=== PATIENT | male | born 1965 | race Two or more races ===

== ENCOUNTER → 2017-06-15 | Outpatient (CLI) | payer BC ==
--- NOTE | 2017-06-15 11:05 | EST ---
EXERCISE STRESS AGE: 52 SEX: Male HT: 5'10" WT: 275 pounds PROTOCOL: Cardiolite Emre STAGE: III DURATION OF EXERCISE: 7 minutes HEART RATE REST: 69 BLOOD PRESSURE REST: 162/85 MAXIMUM HEART RATE ACHIEVED: 156 MAXIMUM BLOOD PRESSURE: 219/65 85% MPHR: 143 100% MPHR: 168 METS: 8 INDICATIONS: Chest pain. Baseline EKG shows sinus rhythm, normal axis, normal intervals. The patient exercised on Emre protocol for a total of 7 minutes achieving 8 METs, 92% of predicted maximal heart rate without chest pain or diagnostic ST-segment depression. CONCLUSIONS: 1. Average exercise tolerance. 2. Negative stress test by EKG criteria. 3. Cardiolite portion of this stress test will be reported separately. MMODL / IJN: [id number] /
--- NOTE | 2017-06-15 11:34 | NM ---
EXAMINATION TYPE: NM stress cardiolite complete DATE OF EXAM: 06/15/2017 COMPARISON: NONE HISTORY: Chest pain TECHNIQUE: After the intravenous administration of 9.61 mCi Tc 99m Sestamibi - Rest images obtained 45 minutes post injection. The patient exercised using a ANDRZEJ protocol and 1 minute prior to peak exercise was injected with 29 mCi Tc 99m Sestamibi - Stress images obtained 10 minutes post injection . FINDINGS: Targeted heart rate was achieved during performance of the study. Review of stress and rest SPECT cynthia ges demonstrates no distinct perfusion abnormality. Gated analysis shows normal wall motion with an estimated left ventricular ejection fraction of 61 %. IMPRESSION: No scintigraphic evidence for reversible ischemia
== END ==
LOC: RADNMMAIN 08:30
PROVIDERS: ATTEND Family Medicine
DX: R07.9 Chest pain, unspecified (principal)
CPT/HCPCS: 93017; 78452; A9500

== ENCOUNTER 2019-10-16 21:45 | Emergency (ER) | payer BC ==
--- NOTE | 2019-10-16 22:55 | ED ---
Recheck HPI - General Chief Complaint: Recheck/Abnormal Lab/Rx Stated Complaint: Abn Labs Time Seen by Provider: 10/16/19 22:02 Source: patient Mode of arrival: ambulatory Limitations: no limitations - History of Present Illness Initial Comments: Frandy a 54-year-old [place] with a history of bariatric surgery in the past 2 presents the ER today on the advice of his primary care physician after outpatient labs revealed profound anemia. Patient reports he's been feeling fatigued for a while he had outpatient labs completed which revealed a hemoglobin of only 7.4, low iron, normal liver function normal thyroid. Patient is scheduled to see gastroenterology next week for upper and lower endoscopy, given that he says was bariatric surgery he is high risk for occult GI bleeding. Patient reports she's been feeling fatigued and short of breath with exertion which is what prompted his primary care to perform outpatient labs. Patient denies any chest pain or palpitations. He does report orthostatic lightheadedness. - Related Data Allergies Allergy/AdvReac Type Severity Reaction Status Date / Time No Known Allergies Allergy Verified 10/16/19 21:56 Review of Systems ROS Statement: Those systems with pertinent positive or pertinent negative responses have been documented in the HPI. ROS Other: All systems not noted in ROS Statement are negative. Past Medical History Additional Past Medical History / Comment(s): anemia History of Any Multi-Drug Resistant Organisms: None Reported Past Surgical History: Appendectomy, Bariatric Surgery, Orthopedic Surgery Additional Past Surgical History / Comment(s): left knee, tummy tuc, eye surgery Past Psychological History: No Psychological Hx Reported Smoking Status: Never smoker Past Alcohol Use History: Daily Past Drug Use History: None Reported General Exam - General Exam Comments Initial Comments: Physical Exam GENERAL: Patient is well-developed and well-nourished. Patient is nontoxic and well-hydrated and is in no distress. HENT: Normocephalic, Atraumatic. EYES: PERRL, EOMI Conjunctival pallor PULMONARY: Unlabored respirations. No audible rales rhonchi or wheezing was noted. CARDIOVASCULAR: There is a regular rate and rhythm without any murmurs gallops or rubs. ABDOMEN: Soft and nontender with normal bowel sounds. SKIN: Skin is clear with no lesions or rashes and otherwise unremarkable. : Deferred NEUROLOGIC: Patient is alert and oriented x3. Moving all extremities spontaneously MUSCULOSKELETAL: Normal extremities with adequate strength and full range of motion. No lower extremity swelling or edema. No calf tenderness. PSYCHIATRIC: Normal psychiatric evaluation. Limitations: no limitations Course Vital Signs 10/16/19 10/16/19 10/17/19 21:53 23:00 00:46 Temperature 98.8 F 98.6 F Pulse Rate 88 72 86 Respiratory 16 20 18 Rate Blood Pressure 145/75 152/85 152/85 O2 Sat by Pulse 98 97 95 Oximetry 10/17/19 10/17/19 10/17/19 01:31 01:41 01:54 Temperature 98.8 F 98.3 F 98.3 F Pulse Rate 84 72 62 Respiratory 16 15 18 Rate Blood Pressure 129/64 123/66 130/61 O2 Sat by Pulse 94 L 98 96 Oximetry 10/17/19 10/17/19 02:10 04:07 Temperature 98.3 F 98.4 F Pulse Rate 86 85 Respiratory 18 18 Rate Blood Pressure 122/61 129/63 O2 Sat by Pulse 96 98 Oximetry Medical Decision Making - Medical Decision Making She was seen and evaluated history is obtained from patient as an outpatient labs are reviewed patient with anemia that is microcytic likely multifactorial related to chronic GI blood loss secondary to his previous surgeries also likely related to malabsorption and chronic disease. Patient has been feeling fatigued short of breath but no chest pain palpitations lightheadedness or syncope. Labs were repeated hemoglobin remained 7.4, 1 unit of blood was transfused. Patient tolerated transfusion well with no complications. At this time patient is hemodynamically stable be discharged home as scheduled have an echocardiogram with cardiology tomorrow and endoscopy on Thursday of this week. and hemodynamically stable questions pertaining care were answered return parameters discussed patient discharged home in stable condition. - Lab Data Result diagrams: 10/16/19 23:31 10/16/19 23:20 Lab Results 10/16/19 10/16/19 10/16/19 Range/Units 23:12 23:20 23:20 WBC (3.8-10.6) k/uL RBC (4.30-5.90) m/uL Hgb (13.0-17.5) gm/dL Hct (39.0-53.0) % MCV (80.0-100.0) fL MCH (25.0-35.0) pg MCHC (31.0-37.0) g/dL RDW (11.5-15.5) % Plt Count (150-450) k/uL Neutrophils % % Lymphocytes % % Monocytes % % Eosinophils % % Basophils % % Neutrophils # (1.3-7.7) k/uL Lymphocytes # (1.0-4.8) k/uL Monocytes # (0-1.0) k/uL Eosinophils # (0-0.7) k/uL Basophils # (0-0.2) k/uL Hypochromasia Anisocytosis PT 16.6 H (9.0-12.0) sec INR 1.7 H (<1.2) APTT 26.4 (22.0-30.0) sec Sodium 137 (137-145) mmol/L Potassium 4.0 (3.5-5.1) mmol/L Chloride 104 (98-107) mmol/L Carbon Dioxide 24 (22-30) mmol/L Anion Gap 9 mmol/L BUN 8 L (9-20) mg/dL Creatinine 0.57 L (0.66-1.25) mg/dL Est GFR (CKD-EPI)AfAm >90 (>60 ml/min/1.73 sqM) Est GFR (CKD-EPI)NonAf >90 (>60 ml/min/1.73 sqM) Glucose 81 (74-99) mg/dL Calcium 8.3 L (8.4-10.2) mg/dL Total Bilirubin 1.6 H (0.2-1.3) mg/dL AST 125 H (17-59) U/L ALT 36 (4-49) U/L Alkaline Phosphatase 130 H (38-126) U/L Total Protein 7.6 (6.3-8.2) g/dL Albumin 3.2 L (3.5-5.0) g/dL Blood Type O Negative Blood Type Confirm Blood Type Recheck No Previous Record Bld Type Recheck Status CABO Indicated Antibody Screen NEGATIVE Crossmatch See Detail Spec Expiration Date 10/19/2019 - 231910/16/19 10/16/19 Range/Units 23:20 23:31 WBC 4.7 (3.8-10.6) k/uL RBC 2.87 L (4.30-5.90) m/uL Hgb 7.4 L (13.0-17.5) gm/dL Hct 24.8 L (39.0-53.0) % MCV 86.3 (80.0-100.0) fL MCH 25.8 (25.0-35.0) pg MCHC 29.8 L (31.0-37.0) g/dL RDW 20.6 H (11.5-15.5) % Plt Count 132 L (150-450) k/uL Neutrophils % 65 % Lymphocytes % 20 % Monocytes % 8 % Eosinophils % 2 % Basophils % 1 % Neutrophils # 3.0 (1.3-7.7) k/uL Lymphocytes # 1.0 (1.0-4.8) k/uL Monocytes # 0.4 (0-1.0) k/uL Eosinophils # 0.1 (0-0.7) k/uL Basophils # 0.1 (0-0.2) k/uL Hypochromasia Marked Anisocytosis Moderate PT (9.0-12.0) sec INR (<1.2) APTT (22.0-30.0) sec Sodium (137-145) mmol/L Potassium (3.5-5.1) mmol/L Chloride (98-107) mmol/L Carbon Dioxide (22-30) mmol/L Anion Gap mmol/L BUN (9-20) mg/dL Creatinine (0.66-1.25) mg/dL Est GFR (CKD-EPI)AfAm (>60 ml/min/1.73 sqM) Est GFR (CKD-EPI)NonAf (>60 ml/min/1.73 sqM) Glucose (74-99) mg/dL Calcium (8.4-10.2) mg/dL Total Bilirubin (0.2-1.3) mg/dL AST (17-59) U/L ALT (4-49) U/L Alkaline Phosphatase (38-126) U/L Total Protein (6.3-8.2) g/dL Albumin (3.5-5.0) g/dL Blood Type Blood Type Confirm O Negative Blood Type Recheck Bld Type Recheck Status Antibody Screen Crossmatch Spec Expiration Date Disposition Clinical Impression: Anemia Disposition: HOME SELF-CARE Condition: Stable Instructions (If sedation given, give patient instructions): Anemia (ED) Additional Instructions: Follow-up with your editor in chief as scheduled tomorrow for endoscopy and colonoscopy. Follow-up with her primary care physician for further management of chronic anemia. Turn to the ER for any lightheadedness chest pain palpitation shortness breath feeling like passing out or any new or concerning symptoms Is patient prescribed a controlled substance at d/c from ED?: No Referrals: Liu Wray MD [Primary Care Provider] - 1-2 days
[2019-10-16 23:40] LABS: ALT 36 U/L (4-49); AST 125 U/L (17-59); African American GFR (CKD) >90 (>60 ml/min/1.73 sqM); Albumin 3.2 g/dL (3.5-5.0); Alkaline Phosphatase 130 U/L (38-126); Anion Gap 9 mmol/L; Blood Urea Nitrogen 8 mg/dL (9-20); Calcium 8.3 mg/dL (8.4-10.2); Carbon Dioxide 24 mmol/L (22-30); Chloride 104 mmol/L (98-107); Glucose 81 mg/dL (74-99); Non-African American GFR(CKD) >90 (>60 ml/min/1.73 sqM); Sodium 137 mmol/L (137-145); Total Bilirubin 1.6 mg/dL (0.2-1.3); Total Protein 7.6 g/dL (6.3-8.2)
[2019-10-16 23:41] LABS: Anisocytosis Moderate; Basophils # (A) 0.1 k/uL (0-0.2); Basophils % (A) 1 %; Eosinophils # (A) 0.1 k/uL (0-0.7); Eosinophils % (A) 2 %; HCT 24.8 % (39.0-53.0); HGB 7.4 gm/dL (13.0-17.5); Hypochromasia Marked; Lymphocytes % (A) 20 %; MCH 25.8 pg (25.0-35.0); MCHC 29.8 g/dL (31.0-37.0); MCV 86.3 fL (80.0-100.0); Mean Platelet Volume 9.2; Monocytes # (A) 0.4 k/uL (0-1.0); Monocytes % (A) 8 %; Neutrophils % (A) 65 %; Platelet Count 132 k/uL (150-450); RBC 2.87 m/uL (4.30-5.90); RDW 20.6 % (11.5-15.5); WBC 4.7 k/uL (3.8-10.6)
[2019-10-16 23:44] LABS: INR 1.7 (<1.2); Partial Thromboplastin Time 26.4 sec (22.0-30.0); Prothrombin Time 16.6 sec (9.0-12.0)
[2019-10-17 01:55] VITALS: RESP 18
[2019-10-17 04:13] VITALS: BP 129/63; PULSE 85; TEMP 98.4
== END 2019-10-17 04:29 | disposition home or self-care (01) ==
LOC: EC 21:45
DX: D64.9 Anemia, unspecified (principal); Z98.84 Bariatric surgery status
CPT/HCPCS: 99283; 36415; 86900; 86901; 80053; 85025; 85610; 85730; 86850; 86920; P9016; 36430

== ENCOUNTER 2019-11-20 20:26 | Emergency (ER) | payer BC ==
--- NOTE | 2019-11-20 21:49 | ED ---
Abdominal Pain HPI - General Chief Complaint: Abdominal Pain Stated Complaint: Abd pain Time Seen by Provider: 11/20/19 21:04 Source: patient Mode of arrival: ambulatory Limitations: no limitations - History of Present Illness Initial Comments: This patient is a 54-year-old man who presents to be evaluated for left lower quadrant abdominal pains. The patient states he has had pain in this location intermittently for number of years but was not concerned about it until he had an episode of pain on 's [place] that was moderate to severe in intensity and lasted number of hours. He states that the pain has been recurring more frequently since this time and he did see his physician Dr. Flannery, who is attempting to set him up for a colonoscopy to further investigate the pains. Tonight he had a severe episode and decided to be evaluated here. He states that the pain has subsided a bit and is currently 4 out of 10 and he declines analgesia currently. It is an aching, he has not noted worsening factors. In the past loose in his belt would relieve the pain but that has not been the case for the past months. No change in bladder or bowel function noted. He has not had bloody or tarry stools noted though he was recently anemic requiring transfusion and they suspect he is having some very low level GI bleeding. The patient does have history of Supa en Y bariatric surgery and was told previously he had diverticulosis. MD Complaint: abdominal pain -: month(s) Location: LLQ Radiation: none Migration to: no migration Severity: severe Quality: aching Consistency: intermittent Improves With: nothing Worsens With: nothing Associated Symptoms: denies other symptoms - Related Data Previous Rx's Medication Instructions Recorded Ciprofloxacin HCl [Cipro] 500 mg PO Q12HR #14 tablet 11/21/19 metroNIDAZOLE [Flagyl] 500 mg PO TID #21 tab 11/21/19 Allergies Allergy/AdvReac Type Severity Reaction Status Date / Time No Known Allergies Allergy Verified 11/20/19 20:48 Review of Systems ROS Statement: Those systems with pertinent positive or pertinent negative responses have been documented in the HPI. ROS Other: All systems not noted in ROS Statement are negative. Constitutional: Denies: fever, chills Respiratory: Denies: cough, dyspnea Cardiovascular: Denies: chest pain, palpitations Gastrointestinal: Reports: as per HPI, abdominal pain. Denies: nausea, vomiting, diarrhea, constipation, melena, hematochezia Genitourinary: Denies: dysuria, frequency, hematuria, testicular pain, testicular mass Musculoskeletal: Denies: back pain Skin: Denies: rash Neurological: Denies: headache, weakness, numbness Past Medical History Additional Past Medical History / Comment(s): anemia History of Any Multi-Drug Resistant Organisms: None Reported Past Surgical History: Appendectomy, Bariatric Surgery, Orthopedic Surgery Additional Past Surgical History / Comment(s): left knee, tummy tuc, eye surgery Past Psychological History: No Psychological Hx Reported Smoking Status: Never smoker Past Alcohol Use History: Daily Past Drug Use History: None Reported General Exam Limitations: no limitations General appearance: alert, in no apparent distress Head exam: Present: atraumatic, normocephalic Eye exam: Present: normal appearance. Absent: scleral icterus, conjunctival injection ENT exam: Present: normal oropharynx Neck exam: Present: normal inspection Respiratory exam: Present: normal lung sounds bilaterally. Absent: respiratory distress, wheezes, rales, rhonchi, stridor Cardiovascular Exam: Present: regular rate, normal rhythm, normal heart sounds. Absent: systolic murmur, diastolic murmur, rubs, gallop GI/Abdominal exam: Present: soft, tenderness (Mild left lower quadrant tenderness without rebound or guarding), normal bowel sounds. Absent: distended, guarding, rebound, rigid, mass, pulsatile mass, hernia Extremities exam: Present: normal inspection, normal capillary refill. Absent: pedal edema, calf tenderness Back exam: Present: normal inspection. Absent: CVA tenderness (R), CVA tenderness (L) Neurological exam: Present: alert Skin exam: Present: warm, dry, intact, normal color. Absent: rash Course Vital Signs 11/20/19 11/20/19 20:43 22:55 Temperature 98.1 F 97.9 F Pulse Rate 98 89 Respiratory 20 18 Rate Blood Pressure 148/71 124/66 O2 Sat by Pulse 95 100 Oximetry Medical Decision Making - Lab Data Result diagrams: 11/20/19 21:10 11/20/19 21:10 Lab Results 11/20/19 11/20/19 11/20/19 Range/Units 21:10 21:10 22:20 WBC 5.9 (3.8-10.6) k/uL RBC 3.16 L (4.30-5.90) m/uL Hgb 9.0 L D (13.0-17.5) gm/dL Hct 28.2 L (39.0-53.0) % MCV 89.3 (80.0-100.0) fL MCH 28.6 (25.0-35.0) pg MCHC 32.0 (31.0-37.0) g/dL RDW 24.1 H (11.5-15.5) % Plt Count 127 L (150-450) k/uL Neutrophils % 69 % Lymphocytes % 17 % Monocytes % 8 % Eosinophils % 2 % Basophils % 0 % Neutrophils # 4.1 (1.3-7.7) k/uL Lymphocytes # 1.0 (1.0-4.8) k/uL Monocytes # 0.5 (0-1.0) k/uL Eosinophils # 0.1 (0-0.7) k/uL Basophils # 0.0 (0-0.2) k/uL Anisocytosis Marked Microcytosis Slight Macrocytosis Slight Sodium 138 (137-145) mmol/L Potassium 3.9 (3.5-5.1) mmol/L Chloride 104 (98-107) mmol/L Carbon Dioxide 27 (22-30) mmol/L Anion Gap 7 mmol/L BUN 7 L (9-20) mg/dL Creatinine 0.55 L (0.66-1.25) mg/dL Est GFR (CKD-EPI)AfAm >90 (>60 ml/min/1.73 sqM) Est GFR (CKD-EPI)NonAf >90 (>60 ml/min/1.73 sqM) Glucose 88 (74-99) mg/dL Calcium 8.2 L (8.4-10.2) mg/dL Total Bilirubin 1.4 H (0.2-1.3) mg/dL AST 120 H (17-59) U/L ALT 37 (4-49) U/L Alkaline Phosphatase 216 H (38-126) U/L Total Protein 8.0 (6.3-8.2) g/dL Albumin 3.5 (3.5-5.0) g/dL Amylase 51 (30-110) U/L Lipase 263 (23-300) U/L Urine Color Yellow Urine Appearance Clear (Clear) Urine pH 5.5 (5.0-8.0) Ur Specific [place] 1.012 (1.001-1.035) Urine Protein Negative (Negative) Urine Glucose (UA) Negative (Negative) Urine Ketones Negative (Negative) Urine Blood Negative (Negative) Urine Nitrite Negative (Negative) Urine Bilirubin Negative (Negative) Urine Urobilinogen 3.0 (<2.0) mg/dL Ur Leukocyte Esterase Negative (Negative) Disposition Clinical Impression: Diverticulitis Disposition: HOME SELF-CARE Condition: Good Instructions (If sedation given, give patient instructions): Diverticulitis (ED) Prescriptions: Ciprofloxacin HCl [Cipro] 500 mg PO Q12HR #14 tablet metroNIDAZOLE [Flagyl] 500 mg PO TID #21 tab Is patient prescribed a controlled substance at d/c from ED?: No Referrals: Liu Wray MD [Primary Care Provider] - 1-2 days
[2019-11-20 21:54] LABS: Anisocytosis Marked; Basophils % (A) 0 %; Eosinophils # (A) 0.1 k/uL (0-0.7); Eosinophils % (A) 2 %; HCT 28.2 % (39.0-53.0); Lymphocytes % (A) 17 %; MCH 28.6 pg (25.0-35.0); MCV 89.3 fL (80.0-100.0); Macrocytosis Slight; Mean Platelet Volume 8.3; Microcytosis Slight; Monocytes # (A) 0.5 k/uL (0-1.0); Monocytes % (A) 8 %; Neutrophils # (A) 4.1 k/uL (1.3-7.7); Neutrophils % (A) 69 %; Platelet Count 127 k/uL (150-450); RBC 3.16 m/uL (4.30-5.90); RDW 24.1 % (11.5-15.5); WBC 5.9 k/uL (3.8-10.6)
[2019-11-20 22:09] LABS: ALT 37 U/L (4-49); AST 120 U/L (17-59); African American GFR (CKD) >90 (>60 ml/min/1.73 sqM); Albumin 3.5 g/dL (3.5-5.0); Alkaline Phosphatase 216 U/L (38-126); Amylase 51 U/L (30-110); Anion Gap 7 mmol/L; Blood Urea Nitrogen 7 mg/dL (9-20); Calcium 8.2 mg/dL (8.4-10.2); Carbon Dioxide 27 mmol/L (22-30); Chloride 104 mmol/L (98-107); Glucose 88 mg/dL (74-99); Non-African American GFR(CKD) >90 (>60 ml/min/1.73 sqM); Potassium 3.9 mmol/L (3.5-5.1); Sodium 138 mmol/L (137-145); Total Bilirubin 1.4 mg/dL (0.2-1.3)
[2019-11-20 22:27] LABS: Appearance,Urine Clear (Clear); Bilirubin,Urine Negative (Negative); Blood,Urine Negative (Negative); Color,Urine Yellow; Glucose,Urine (UA) Negative (Negative); Ketones,Urine Negative (Negative); Leukocyte Esterase,Urine Negative (Negative); Nitrite,Urine Negative (Negative); PH, Urine 5.5 (5.0-8.0); Protein,Urine Negative (Negative); Specific Gravity,Urine 1.012 (1.001-1.035)
[2019-11-20 22:56] VITALS: RESP 18
--- NOTE | 2019-11-20 23:39 | CT ---
EXAMINATION TYPE: CT abdomen pelvis w con DATE OF EXAM: 11/20/2019 COMPARISON: None HISTORY: LLQ pain CT DLP: 2994.4 mGycm Automated exposure control for dose reduction was used. CONTRAST: Performed with IV Contrast, patient injected with 100 mL of Isovue 300. Multiple axial sections were obtained from the diaphragm to the floor the pelvis with intravenous con trast Isovue 100 mL. FINDINGS: Lung bases are clear. There is no pleural effusion. Heart size is normal. There is no pericardial eff usion. Liver spleen pancreas appear normal. Stomach is intact. There are clips at the gastric fundus. Gallbladder is enlarged and measures 5 cm in diameter. There is no adrenal mass. Kidneys show satisfactory contrast opacification. There is no hydronephrosi s. Ureters are not dilated. Bladder distends smoothly. There is no inguinal hernia. There is some mil d free fluid in the left paracolic gutter extending into the pelvis. There is extensive proximal sigm oid diverticulosis. There is no evidence of free air. There is surgical clips anteriorly apparently f rom hernia surgery. There is no evidence of a bowel obstruction. Lumbar vertebra have normal alignment. Disc spaces are fairly normal. Bony pelvis is intact. There is small amount of fluid also in the right paracolic gutter. IMPRESSION: Free fluid in the abdomen more on the left side. Cause for the fluid is not clear. There are numerous sigmoid diverticula but no definite wall thickening or fat stranding adjacent to the colon to sugges t diverticulitis. I suspect diverticulitis in view of this patient history of left lower quadrant ellis n and the presence of the fluid. Dilated gallbladder suggestive of cholecystitis or significant gallbladder dysfunction..
[2019-11-20] MEDS ORDERED: metroNIDAZOLE 500 MG TAB PO STA (23:45)
[2019-11-20] MEDS ORDERED: LEVOFLOXACIN 750 MG TAB PO STA (23:45)
[2019-11-21 00:30] VITALS: BP 126/71; PULSE 70; TEMP 98
== END 2019-11-21 00:15 | disposition home or self-care (01) ==
LOC: EC 20:26
DX: K57.92 Diverticulitis of intestine, part unspecified, without perforation or abscess without bleeding (principal); Z86.2 Personal history of diseases of the blood and blood-forming organs and certain disorders involving the immune mechanism; Z90.49 Acquired absence of other specified parts of digestive tract; Z98.84 Bariatric surgery status
CPT/HCPCS: 36415; 80053; 82150; 83690; 85025; 81003; 74177; 99284; Q9967

== ENCOUNTER 2019-11-29 09:43 | Day surgery (SDC) | payer BC ==
[2019-11-25 10:15] VITALS: BMI 38.7
[~2019-11-29 09:43] MED LIST: LACTATED RINGERS 1,000 ML IV SCH
[2019-11-29 09:59] VITALS: RESP 16; TEMP 98.4
[2019-11-29] MEDS ORDERED: LIDOCAINE 1% (10MG/ML) FOR IV START INTRADERMA ONE (10:04)
[2019-11-29] MEDS ORDERED: GLYCOPYRROLATE 0.2 MG/ML 2 ML VIAL ONE (11:01)
[2019-11-29] MEDS ORDERED: PROPOFOL 10 MG/ML 20 ML VIAL IV ONE (11:01)
[2019-11-29] MEDS ORDERED: LIDOCAINE 1% INJ 10MG/ML (20 ML MDV) ONE (11:01)
[2019-11-29] MEDS ORDERED: MIDAZOLAM 2 MG/2 ML VIAL ONE (11:01)
[2019-11-29] MEDS ORDERED: KETAMINE 10 MG/ML 20 ML VIAL ONE (11:01)
--- NOTE | 2019-11-29 11:34 | P.PCN ---
Date of Procedure: 11/29/19 Procedure(s) Performed: PREOPERATIVE DIAGNOSIS: Abdominal pain, change in bowel habits, diverticulitis, anemia POSTOPERATIVE DIAGNOSIS: Normal upper endoscopy [id number] bypass, diverticulosis PROCEDURE: 1. EGD 2. Colonoscopy ANESTHESIA: [facility] [place] SURGEON: Stevie Olmedo M.D. SPECIMENS: None ENDOSCOPIC PROCEDURE: The patient was on the endoscopy table in the left decubitus position. The Olympus gastroscope was inserted into the oropharynx and passed under direct visualization to the gastrojejunostomy. The jejunostomy itself was inspected for a distance of approximately 20 cm. No abnormalities were seen throughout the jejunum. The anastomosis was patent without evidence of ulceration. The patient's gastric pouch was quite small only about 1 cm in length. The esophagus was free of inflammatory or neoplastic changes. The patient was kept on the endoscopy table in the left decubitus position. The Olympus colonoscope was inserted into the anus and passed under direct visualization to the base of the cecum. The appendiceal orifice was visualized. From that point the scope was slowly withdrawn inspecting all surfaces carefully. There were no neoplastic inflammatory or polypoid lesions throughout the cecum, ascending, transverse, descending, sigmoid and rectum. The patient's prep particularly on the right-hand side was slightly suboptimal. Some bilious fluid made visualization of the mucosal surfaces limited. There was left-sided fairly extensive diverticulosis noted. Digital rectal examination was normal. The patient was taken to the recovery room in stable condition per anesthesia guidelines. RECOMMENDATIONS: Patient with anemia and elevated liver enzymes. Recommend GI evaluation for hepatocellular disease. Patient will monitor his abdominal symptoms. Will order an abdominal ultrasound to evaluate both the liver and gallbladder at this time.
[2019-11-29 12:09] VITALS: BP 126/70; PULSE 87
== END 2019-11-29 12:10 | disposition home or self-care (01) ==
LOC: ORWHC2ENDO 09:43
PROVIDERS: ATTEND Surgery
DX: R10.13 Epigastric pain (principal); K57.31 Diverticulosis of large intestine without perforation or abscess with bleeding; D64.9 Anemia, unspecified; R74.8 Abnormal levels of other serum enzymes; E66.01 Morbid (severe) obesity due to excess calories; Z68.38 Body mass index [BMI] 38.0-38.9, adult; Z90.49 Acquired absence of other specified parts of digestive tract; Z98.84 Bariatric surgery status; Z98.890 Other specified postprocedural states; Z79.899 Other long term (current) drug therapy; Z98.0 Intestinal bypass and anastomosis status
CPT/HCPCS: 45378; 43235; J2250; J2001; J2704

== ENCOUNTER → 2019-12-01 | Outpatient (CLI) | payer BC ==
--- NOTE | 2019-12-01 09:33 | US ---
EXAMINATION TYPE: US abdomen limited DATE OF EXAM: 12/01/2019 COMPARISON: G3 05/03/2020 CLINICAL HISTORY: R10.11 RUQ pain. F/u to CT scan elevated liver enzymes.Exam limitations due to body habitus. EXAM MEASUREMENTS: Liver Length: 16.1 cm Gallbladder Wall: .2 cm CBD: .7 cm Right Kidney: 11 x 4.7 x 4.9 cm Pancreas: Obscured by bowel gas Liver: Increased attenuation Gallbladder: 5.9 cm transverse. No stone seen limited due to bowel gas Evidence for sonographic Veras's sign: No CBD: wnl Right Kidney: Limited No evident ascites. IMPRESSION: Low-attenuation of the liver on CT correlates with coarse echotexture on ultrasound, poor penetration of the ultrasound beam suggesting hepatic steatosis versus hepatocellular disease. Exam is limited.
== END | disposition home or self-care (01) ==
LOC: RADUSMAIN 07:33
PROVIDERS: ATTEND Surgery
DX: R10.11 Right upper quadrant pain (principal)
CPT/HCPCS: 76705

== ENCOUNTER → 2020-10-05 | Day surgery (SDC) | payer BC ==
[2020-10-05 08:42] VITALS: BP 137/75; PULSE 69; RESP 18; TEMP 98.1
[2020-10-05] MEDS: GLUCAGON 1 MG/ML VIAL IM STA ×2 (09:45→09:53)
== END ==
LOC: RADMRIMAIN 08:04
PROVIDERS: ATTEND Surgery
DX: K92.2 Gastrointestinal hemorrhage, unspecified (principal); Z53.8 Procedure and treatment not carried out for other reasons

== ENCOUNTER 2024-03-07 18:53 | Emergency (ER) | payer BC ==
[2024-03-07 19:15] VITALS: TEMP 98
--- NOTE | 2024-03-07 20:09 | ED ---
GI Bleed HPI - General Source: patient, RN notes reviewed Mode of arrival: ambulatory Limitations: no limitations <Nadia Burris - Last Filed: 03/07/24 20:09> <Margie Calvo - Last Filed: 03/07/24 23:19> - General Chief complaint: GI Bleed Stated complaint: Blood in stool Time Seen by Provider: 03/07/24 20:09 - History of Present Illness Initial comments: Quick note: 59-year-old male presented to ER with a chief complaint of dark tarry stools. He states has been going on for the past week. He denies any abd ominal plain or blood thinner use. He does report a past medical history significant of gastric bypass and diverticulosis. (Nadia Burris) 59-year-old male presents to the emergency department with dark stools. States it has been going on for the past 3 to 4 days. Admits to diarrhea dark in coloration. He admits that his symptoms started to improve however today he has had numerous episodes. Blood is starting to become brighter in coloration. He denies any abdominal or rectal pain. He denies history of similar in the past. He does not take any blood thinners. Last colonoscopy was in 2019. He was told that he has diverticulosis however has had no bouts of diverticulitis. He denies any fevers. Patient does have a history of MDS. He was diagnosed in 2019 and received 1 blood transfusion. Currently he is on Procrit and iron transfusions. He reports that his last hemoglobin was close to 11. He admits to chronic shortness of breath however nothing worsened recently. Has chronic white productive sputum. No history of heart failure. Patient does admit to daily alcohol use. No history of liver cirrhosis. No history of esophageal varices. He denies any nausea, vomiting or hematemesis. patient has history of gastric bypass. No other alleviating, precipitating or modifying factors (Margie Calvo) - Related Data Home Medications Medication Instructions Recorded Confirmed Epoetin Silvio [Procrit] 20,000 unit SQ Q14D PRN 03/07/24 03/07/24 Epoetin Silvio [Procrit] 40,000 unit SQ Q14D PRN 03/07/24 03/07/24 Lipitrex Otc Diuretic 1 tab PO BID 03/07/24 03/07/24 Oxymetazoline HCl [Vicks Sinex] 1 spray EA NOSTRIL BID PRN 03/07/24 03/07/24 Skinny Feet Water Retention And 2 tab PO BID 03/07/24 03/07/24 Swelling Support Allergies Allergy/AdvReac Type Severity Reaction Status Date / Time No Known Allergies Allergy Verified 03/07/24 21:14 Review of Systems ROS Other: All systems not noted in ROS Statement are negative. <Nadia Burris - Last Filed: 03/07/24 20:09> ROS Other: All systems not noted in ROS Statement are negative. <Margie Calvo - Last Filed: 03/07/24 23:19> ROS Statement: Those systems with pertinent positive or pertinent negative responses have been documented in the HPI. Past Medical History Additional Past Medical History / Comment(s): anemia. DIVERTICULITIS. gastric Bipass History of Any Multi-Drug Resistant Organisms: None Reported Past Surgical History: Appendectomy, Bariatric Surgery, Hernia Repair, Orthopedic Surgery Additional Past Surgical History / Comment(s): left knee SX, tummy tucK, BILAT eye surgery FOR STY'S, COLONOSCOPY, Past Anesthesia/Blood Transfusion Reactions: No Reported Reaction Past Psychological History: No Psychological Hx Reported Smoking Status: Never smoker Past Alcohol Use History: Daily Past Drug Use History: None Reported - Past Family History Mother Family Medical History: No Reported History <Nadia Burris - Last Filed: 03/07/24 20:09> General Exam Limitations: no limitations <Nadia Burris - Last Filed: 03/07/24 20:09> General appearance: alert, in no apparent distress Head exam: Present: atraumatic, normocephalic, normal inspection Eye exam: Present: normal appearance, PERRL, EOMI. Absent: scleral icterus, conjunctival injection, periorbital swelling ENT exam: Present: normal exam, mucous membranes moist Neck exam: Present: normal inspection. Absent: tenderness, meningismus, lymphadenopathy Respiratory exam: Present: normal lung sounds bilaterally. Absent: respiratory distress, wheezes, rales, rhonchi, stridor Cardiovascular Exam: Present: regular rate, normal rhythm, normal heart sounds. Absent: systolic murmur, diastolic murmur, rubs, gallop, clicks GI/Abdominal exam: Present: soft, normal bowel sounds. Absent: distended, tenderness, guarding, rebound, rigid Rectal exam: Present: heme (+) stool, bloody stool Extremities exam: Present: normal inspection, full ROM, normal capillary refill. Absent: tenderness, pedal edema, joint swelling, calf tenderness Back exam: Present: normal inspection Neurological exam: Present: alert, oriented X3, CN II-XII intact Psychiatric exam: Present: normal affect, normal mood Skin exam: Present: warm, dry, intact, normal color. Absent: rash <Margie Calvo - Last Filed: 03/07/24 23:19> - General Exam Comments Initial Comments: Visual Physical Exam Vital signs reviewed General: Well-appearing, nontoxic, no acute distress. Head: Normocephalic, atraumatic Eyes: PERRLA, EOMI ENT: Airway patent Chest: Nonlabored breathing Skin: No visual rash, normal skin tone Neuro: Alert and oriented 3 Musculoskeletal: No gross abnormalities (Nadia Burris) Course Vital Signs 03/07/24 03/07/24 03/07/24 19:11 21:08 21:45 Temperature 98 F Pulse Rate 94 95 93 Respiratory 17 18 Rate Blood Pressure 160/69 145/64 O2 Sat by Pulse 89 L 89 L Oximetry 03/07/24 03/07/24 21:54 22:51 Temperature Pulse Rate 92 Respiratory Rate Blood Pressure O2 Sat by Pulse 91 L Oximetry Medical Decision Making <Nadia Burris - Last Filed: 03/07/24 20:09> - Lab Data Result diagrams: 03/07/24 19:40 03/07/24 19:40 <Margie Calvo - Last Filed: 03/07/24 23:19> - Medical Decision Making I performed the quick note portion of this chart. Electronically signed by Nadia Burris PA-C (Nadia Burris) Was pt. sent in by a medical professional or institution (ESTRELLA Paulino, LIBRARY ACQUISITIONS TECHNICIAN, urgent care, hospital, or assisted...) When possible be specific @ -No Did you speak to anyone other than the patient for history (EMS, parent, family, police, friend...)? What history was obtained from this source @ -I spoke with the patient's for history Did you review nursing and triage notes (agree or disagree)? Why? @ -I reviewed and agree with nursing and triage notes Were old charts reviewed (outside hosp., previous admission, EMS record, old EKG, old radiological studies, urgent care reports/EKG's, assisted records)? Report findings @ -I reviewed patient's hemoglobin from August and it was 9.6 Differential Diagnosis (chest pain, altered mental status, abdominal pain women, abdominal pain men, vaginal bleeding, weakness, fever, dyspnea, syncope, headache, dizziness, GI bleed, back pain, seizure, CVA, palpatations, mental health, musculoskeletal)? @ -Differential GI Bleed: Esophageal varices, aortoenteric fistula, Sofy-Ariza, gastritis, peptic ulcer disease, diverticulosis, inflammatory bowel disease, hemorrhoids, fissure, colitis, malignancy, Meckels diverticulum, this is not meant to be an all-incl usive list. EKG interpreted by me (3pts min.). @ -Not done X-rays interpreted by me (1pt min.). @ -Yes and demonstrates some pulmonary vascular congestion CT interpreted by me (1pt min.). @ -None done U/S interpreted by me (1pt. min.). @ -None done What testing was considered but not performed or refused? (CT, X-rays, U/S, labs)? Why? @ -None What meds were considered but not given or refused? Why? @ -None Did you discuss the management of the patient with other professionals (professionals i.e. , PA, LIBRARY ACQUISITIONS TECHNICIAN, lab, RT, psych nurse, social worker assistant, lokie engineer, teacher, antisubmarine weapons officer, case sealer)? Give summary @ -I spoke with Dr. Rubio who is the surgeon on-call. Does not feel comfortable managing the patient as we do not have GI Was smoking cessation discussed for >3mins.? @ -No Was critical care preformed (if so, how long)? @ -No Were there social determinants of health that impacted care today? How? (Homelessness, low income, unemployed, alcoholism, drug addiction, transporta tion, low edu. Level, literacy, decrease access to med. care, shelter, rehab)? @ -No Was there de-escalation of care discussed even if they declined (Discuss DNR or withdrawal of care, Hospice)? DNR status @ -No What co-morbidities impacted this encounter? (DM, HTN, Smoking, COPD, CAD, Cancer, CVA, ARF, Chemo, Hep., AIDS, mental health diagnosis, sleep apnea, morbid obesity)? @ -Myelodysplastic syndrome Was patient admitted / discharged? Hospital course, mention meds given and route, prescriptions, significant lab abnormalities, going to OR and other pertinent info. @ -Upon arrival patient seen and evaluated in room 5. Thorough history and physical exam was performed. Fecal occult is obtained. Patient does have a bright red bowel movement with dark flecks. Laboratory studies are obtained. Chest x-ray was performed. Patient remains on 2 L of oxygen due to his hypoxia. Patient has hemoglobin of 8.6. He does require GI evaluation which I cannot provide at our facility. I spoke with Dr. Rubio. He is not agreeable to evaluating the patient as we do not have GI. Patient is requesting [facility] for transfer. I called and spoke with Dr. Quiroga who was agreeable to transfer. COBRA forms are signed. Patient transferred in hemodynamically stable condition Undiagnosed new problem with uncertain prognosis? @ -Yes Drug Therapy requiring intensive monitoring for toxicity (Heparin, Nitro, Insulin, Cardizem)? @ -No Were any procedures done? @ -No Diagnosis/symptom? @ -Acute GI bleed, acute hypoxia, chronic anemia Acute, or Chronic, or Acute on Chronic? @ -Acute Uncomplicated (without systemic symptoms) or Complicated (systemic symptoms)? @ -Complicated Side effects of treatment? @ -No Exacerbation, Progression, or Severe Exacerbation? @ -No Poses a threat to life or bodily function? How? (Chest pain, USA, MS, pneumonia, PE, COPD, DKA, ARF, appy, cholecystitis, CVA, Diverticulitis, Homicidal, Suicidal, threat to staff... and all critical care pts) @ -No (Margie Calvo) - Lab Data Lab Results 03/07/24 03/07/24 03/07/24 Range/Units 19:32 19:40 19:40 WBC 4.2 (3.8-10.6) k/uL RBC 2.86 L (4.30-5.90) m/uL Hgb 8.6 L (13.0-17.5) gm/dL Hct 28.2 L (39.0-53.0) % MCV 98.6 (80.0-100.0) fL MCH 30.1 (25.0-35.0) pg MCHC 30.5 L (31.0-37.0) g/dL RDW 18.5 H (11.5-15.5) % Plt Count 97 L (150-450) k/uL MPV 9.7 Neutrophils % 71 % Lymphocytes % 16 % Monocytes % 8 % Eosinophils % 3 % Basophils % 0 % Neutrophils # 3.0 (1.3-7.7) k/uL Lymphocytes # 0.7 L (1.0-4.8) k/uL Monocytes # 0.3 (0-1.0) k/uL Eosinophils # 0.1 (0-0.7) k/uL Basophils # 0.0 (0-0.2) k/uL Manual Slide Review Performed Hypochromasia Moderate Anisocytosis Slight Macrocytosis Slight PT 16.4 H (10.0-12.5) sec INR 1.6 H (<1.2) APTT 26.9 (22.0-30.0) sec Sodium (137-145) mmol/L Potassium (3.5-5.1) mmol/L Chloride (98-107) mmol/L Carbon Dioxide (22-30) mmol/L Anion Gap mmol/L BUN (9-20) mg/dL Creatinine (0.66-1.25) mg/dL Est GFR (CKD-EPI)AfAm (>60 ml/min/1.73 sqM) Est GFR (CKD-EPI)NonAf (>60 ml/min/1.73 sqM) Glucose (74-99) mg/dL Calcium (8.4-10.2) mg/dL Total Bilirubin (0.2-1.3) mg/dL AST (17-59) U/L ALT (4-49) U/L Alkaline Phosphatase (38-126) U/L Troponin I (0.000-0.034) ng/mL Total Protein (6.3-8.2) g/dL Albumin (3.5-5.0) g/dL Amylase (30-110) U/L Lipase (23-300) U/L Stool Occult Blood (Negative) Blood Type O Negative Blood Type Recheck O Neg Bld Type Recheck Status No Antibody Screen NEGATIVE Spec Expiration Date 03/10/2024 - 233103/07/24 03/07/24 03/07/24 Range/Units 19:40 19:40 19:40 WBC (3.8-10.6) k/uL RBC (4.30-5.90) m/uL Hgb (13.0-17.5) gm/dL Hct (39.0-53.0) % MCV (80.0-100.0) fL MCH (25.0-35.0) pg MCHC (31.0-37.0) g/dL RDW (11.5-15.5) % Plt Count (150-450) k/uL MPV Neutrophils % % Lymphocytes % % Monocytes % % Eosinophils % % Basophils % % Neutrophils # (1.3-7.7) k/uL Lymphocytes # (1.0-4.8) k/uL Monocytes # (0-1.0) k/uL Eosinophils # (0-0.7) k/uL Basophils # (0-0.2) k/uL Manual Slide Review Hypochromasia Anisocytosis Macrocytosis PT (10.0-12.5) sec INR (<1.2) APTT (22.0-30.0) sec Sodium 135 L (137-145) mmol/L Potassium 4.1 (3.5-5.1) mmol/L Chloride 109 H (98-107) mmol/L Carbon Dioxide 19 L (22-30) mmol/L Anion Gap 7 mmol/L BUN 10 (9-20) mg/dL Creatinine 0.42 L (0.66-1.25) mg/dL Est GFR (CKD-EPI)AfAm >90 (>60 ml/min/1.73 sqM) Est GFR (CKD-EPI)NonAf >90 (>60 ml/min/1.73 sqM) Glucose 88 (74-99) mg/dL Calcium 8.6 (8.4-10.2) mg/dL Total Bilirubin 3.8 H (0.2-1.3) mg/dL AST 78 H (17-59) U/L ALT 26 (4-49) U/L Alkaline Phosphatase 169 H (38-126) U/L Troponin I <0.012 (0.000-0.034) ng/mL Total Protein 6.9 (6.3-8.2) g/dL Albumin 3.3 L (3.5-5.0) g/dL Amylase 46 (30-110) U/L Lipase 114 (23-300) U/L Stool Occult Blood (Negative) Blood Type Blood Type Recheck Bld Type Recheck Status Antibody Screen Spec Expiration Date 03/07/24 Range/Units 21:00 WBC (3.8-10.6) k/uL RBC (4.30-5.90) m/uL Hgb (13.0-17.5) gm/dL Hct (39.0-53.0) % MCV (80.0-100.0) fL MCH (25.0-35.0) pg MCHC (31.0-37.0) g/dL RDW (11.5-15.5) % Plt Count (150-450) k/uL MPV Neutrophils % % Lymphocytes % % Monocytes % % Eosinophils % % Basophils % % Neutrophils # (1.3-7.7) k/uL Lymphocytes # (1.0-4.8) k/uL Monocytes # (0-1.0) k/uL Eosinophils # (0-0.7) k/uL Basophils # (0-0.2) k/uL Manual Slide Review Hypochromasia Anisocytosis Macrocytosis PT (10.0-12.5) sec INR (<1.2) APTT (22.0-30.0) sec Sodium (137-145) mmol/L Potassium (3.5-5.1) mmol/L Chloride (98-107) mmol/L Carbon Dioxide (22-30) mmol/L Anion Gap mmol/L BUN (9-20) mg/dL Creatinine (0.66-1.25) mg/dL Est GFR (CKD-EPI)AfAm (>60 ml/min/1.73 sqM) Est GFR (CKD-EPI)NonAf (>60 ml/min/1.73 sqM) Glucose (74-99) mg/dL Calcium (8.4-10.2) mg/dL Total Bilirubin (0.2-1.3) mg/dL AST (17-59) U/L ALT (4-49) U/L Alkaline Phosphatase (38-126) U/L Troponin I (0.000-0.034) ng/mL Total Protein (6.3-8.2) g/dL Albumin (3.5-5.0) g/dL Amylase (30-110) U/L Lipase (23-300) U/L Stool Occult Blood Positive (Negative) Blood Type Blood Type Recheck Bld Type Recheck Status Antibody Screen Spec Expiration Date Disposition <Nadia Burris - Last Filed: 03/07/24 20:09> Is patient prescribed a controlled substance at d/c from ED?: No Time of Disposition: 23:19 - Out of Hospital Transfer - Req. Specs Out of Hospital Transfer - Requested Specifics: Other Emergency Center ([facility]) <Margie Calvo - Last Filed: 03/07/24 23:19> Clinical Impression: GI bleed, Hypoxia Disposition: OTHER INSTITUTION NOT DEFINED Condition: Serious Referrals: None,Stated [Primary Care Provider] - 1-2 days
[2024-03-07 20:12] LABS: Anisocytosis Slight; Basophils % (A) 0 %; Eosinophils % (A) 3 %; HCT 28.2 % (39.0-53.0); HGB 8.6 gm/dL (13.0-17.5); Hypochromasia Moderate; Lymphocytes # (A) 0.7 k/uL (1.0-4.8); Lymphocytes % (A) 16 %; MCH 30.1 pg (25.0-35.0); MCHC 30.5 g/dL (31.0-37.0); MCV 98.6 fL (80.0-100.0); Macrocytosis Slight; Mean Platelet Volume 9.7; Monocytes % (A) 8 %; Neutrophils % (A) 71 %; RBC 2.86 m/uL (4.30-5.90); RDW 18.5 % (11.5-15.5); WBC 4.2 k/uL (3.8-10.6)
[2024-03-07 20:13] LABS: Eosinophils # (A) 0.1 k/uL (0-0.7); Monocytes # (A) 0.3 k/uL (0-1.0)
[2024-03-07 20:43] LABS: ALT 26 U/L (4-49); AST 78 U/L (17-59); African American GFR (CKD) >90 (>60 ml/min/1.73 sqM); Albumin 3.3 g/dL (3.5-5.0); Alkaline Phosphatase 169 U/L (38-126); Anion Gap 7 mmol/L; Blood Urea Nitrogen 10 mg/dL (9-20); Calcium 8.6 mg/dL (8.4-10.2); Carbon Dioxide 19 mmol/L (22-30); Chloride 109 mmol/L (98-107); Glucose 88 mg/dL (74-99); Non-African American GFR(CKD) >90 (>60 ml/min/1.73 sqM); Potassium 4.1 mmol/L (3.5-5.1); Sodium 135 mmol/L (137-145); Total Bilirubin 3.8 mg/dL (0.2-1.3); Total Protein 6.9 g/dL (6.3-8.2)
[2024-03-07 21:01] LABS: INR 1.6 (<1.2); Partial Thromboplastin Time 26.9 sec (22.0-30.0); Prothrombin Time 16.4 sec (10.0-12.5)
[2024-03-07 21:07] LABS: Amylase 46 U/L (30-110); Lipase 114 U/L (23-300)
[2024-03-07 21:28] LABS: Platelet Count 97 k/uL (150-450)
[2024-03-07] MEDS: IPRATROPIUM-ALBUTEROL 3 ML NEB INHALATION STA (21:45)
[2024-03-07 23:46] VITALS: BP 143/82; PULSE 101; RESP 20
--- NOTE | 2024-03-08 01:27 | XR ---
EXAM: XR Chest, 1 View CLINICAL HISTORY: ITS.REASON XR Reason: hypoxia TECHNIQUE: Frontal view of the chest. COMPARISON: No relevant prior studies available. FINDINGS: Lungs: Unremarkable. No consolidation. Pleural space: Unremarkable. No pneumothorax. Heart: Cardiomegaly. Mediastinum: Unremarkable. Normal mediastinal contour. Bones/joints: Unremarkable. No acute fracture. IMPRESSION: No acute findings in the chest.
== END 2024-03-07 23:51 | disposition other institution (70) ==
LOC: EC 18:53
DX: D50.0 Iron deficiency anemia secondary to blood loss (chronic) (principal); K92.2 Gastrointestinal hemorrhage, unspecified; R09.02 Hypoxemia
CPT/HCPCS: 36415; 71045; 80053; 82150; 82272; 83690; 84484; 85025; 85610; 85730; 86850; 86900; 86901; 94640; 99285

== ENCOUNTER 2025-04-03 10:49 | Emergency (ER) | payer BC ==
[2025-04-03 10:53] VITALS: BP 109/69; PULSE 89; RESP 18
[2025-04-03] MEDS: ACETAMINOPHEN TAB 500 MG TAB PO STA (11:41)
[2025-04-03 11:53] VITALS: TEMP 99.6
[2025-04-03 12:05] LABS: Basophils # (A) 0.03 10*3/uL (0.00-0.10); Basophils % (A) 0.4 %; Eosinophils # (A) 0.03 10*3/uL (0.04-0.35); Eosinophils % (A) 0.4 %; HCT 37.5 % (39.6-50.0); HGB 13.2 g/dL (13.0-17.0); Lymphocytes # (A) 0.49 10*3/uL (0.90-5.00); Lymphocytes % (A) 6.4 %; MCH 35.5 pg (27.0-32.0); MCHC 35.2 g/dL (32.0-37.0); MCV 100.8 fL (80.0-97.0); Monocytes # (A) 0.53 10*3/uL (0.20-1.00); Monocytes % (A) 6.9 %; Neutrophils # (A) 6.47 10*3/uL (1.80-7.70); Neutrophils % (A) 84.7 %; RBC 3.72 10*6/uL (4.40-5.60); RDW 14.4 % (11.5-14.5); WBC 7.64 10*3/uL (4.50-10.00)
[2025-04-03 12:17] LABS: ALT 22 U/L (4-49); AST 45 U/L (17-59); African American GFR (CKD) >90 (>60 ml/min/1.73 sqM); Albumin 3.4 g/dL (3.5-5.0); Alkaline Phosphatase 140 U/L (38-126); Anion Gap 11 mmol/L; Blood Urea Nitrogen 10 mg/dL (9-20); Calcium 8.9 mg/dL (8.4-10.2); Carbon Dioxide 19 mmol/L (22-30); Chloride 107 mmol/L (98-107); Glucose 93 mg/dL (74-99); Magnesium 1.6 mg/dL (1.6-2.3); Non-African American GFR(CKD) >90 (>60 ml/min/1.73 sqM); Potassium 4.0 mmol/L (3.5-5.1); Sodium 137 mmol/L (137-145); Total Protein 7.1 g/dL (6.3-8.2)
--- NOTE | 2025-04-03 12:20 | US ---
EXAMINATION TYPE: US venous doppler duplex LE LT DATE OF EXAM: 04/03/2025 12:06 PM COMPARISON: NONE CLINICAL INDICATION: Male, 60 years old with history of eval for DVT; No hx of DVT. Patient does not take blood thinners TECHNIQUE: The lower extremity deep venous system is examined utilizing real time linear array sonog alec with graded compression, doppler sonography and color-flow sonography. Grayscale, color doppler , spectral doppler imaging performed of the deep veins of the lower extremities FINDINGS: SIDE PERFORMED: Left VESSELS IMAGED: Common Femoral Vein Deep Femoral Vein Greater Saphenous Vein * Femoral Vein Popliteal Vein Small Saphenous Vein * Proximal Calf Veins Posterior tibial veins Peroneal veins (* superficial vessels) Left Leg: Drencher notes: No evidence of DVT. *No abnormalities seen on lateral calf at patient's area of concern. IMPRESSION: 1. No evidence for DVT left lower extremity. 2. Additional targeted scanning along the lateral calf at the site of patient's concern shows no disc rete sonographic abnormalities. [facility], , 04/03/2025 12:18 PM
[2025-04-03 12:48] LABS: Platelet Count 65 10*3/uL (140-440)
--- NOTE | 2025-04-03 13:11 | XR ---
EXAMINATION TYPE: XR tibia fibula LT DATE OF EXAM: 04/03/2025 12:41 PM COMPARISON: None CLINICAL INDICATION: Male, 60 years old with history of eval for osteomyelitis; PHH, pain TECHNIQUE: 2 views FINDINGS: At least moderate tricompartmental degenerative spurring. Degenerative change may be moderate to melecio re within the lateral compartment. Mild generalized soft tissue swelling. There is periosteal mature bone formation along the length of the tibial and fibular shaft. No discrete lytic destruction is seen. Anterior pelvic phleboliths. IMPRESSION: 1. Mild generalized soft tissue swelling. Some mature, smooth periostitis along both tibial and fibul ar shafts. Differential considerations include a bony reaction to overlying chronic cellulitis, venou s insufficiency, primary hypertrophic osteoarthropathy, chronic voriconazole use, thyroid acropachy, and hypervitaminosis A as some possible etiologies. 2. No radha bone destruction to clearly indicate osteomyelitis. 3. At least moderate tricompartmental osteoarthrosis of the knee, probably severe at the lateral comp artment. [facility], Workstation: [id number], 04/03/2025 1:09 PM
--- NOTE | 2025-04-03 13:16 | ED ---
General Adult HPI - General Chief complaint: Skin/Abscess/Foreign Body Stated complaint: L leg pain Time Seen by Provider: 04/03/25 11:15 Source: patient, RN notes reviewed, old records reviewed Mode of arrival: ambulatory Limitations: no limitations - History of Present Illness Initial comments: 60-year-old white male presents emergency department complaining of left lower extremity redness and pain. Has been present for approximate the last 24 hours. Patient has a past medical history remarkable for chronic hypoxic respiratory failure, anemia, gastric bypass surgery. Denies any current fevers but states he had a fever last night. States it is painful. Denies any open wounds. Patient does have a burn to the left anterior forearm as well from yesterday from a heating pad. Denies any history of blood clots. Is not on blood thi nners. Presents for further evaluation at this time. Concern for left lower extremity Cellulitis. - Related Data Home Medications Medication Instructions Recorded Confirmed Epoetin Silvio [Procrit] 20,000 unit SQ Q14D PRN 03/07/24 04/11/24 Epoetin Silvio [Procrit] 40,000 unit SQ Q14D PRN 03/07/24 04/11/24 Atorvastatin [Lipitor] 10 mg PO DAILY 04/11/24 04/11/24 Bumetanide [BUMEX] 0.5 mg PO DAILY 04/11/24 04/11/24 Empagliflozin [Jardiance] 10 mg PO DAILY 04/11/24 04/11/24 Multivitamin [Multivitamins Adult 1 each PO DAILY 04/11/24 04/11/24 Gummies] Omeprazole [PriLOSEC] 10 mg PO DAILY 04/11/24 04/11/24 Sacubitril/Valsartan [Entresto 24 1 each PO DAILY 04/11/24 04/11/24 mg-26 mg Tablet] Spironolactone [Aldactone] 25 mg PO DAILY 04/11/24 04/11/24 Previous Rx's Medication Instructions Recorded Cephalexin [Keflex] 500 mg PO Q12HR 10 Days #20 cap 04/03/25 Sulfamethox-Tmp 800-160Mg [Bactrim 1 tab PO Q12HR 10 Days #20 tab 04/03/25 DS 800-160 mg] Allergies Allergy/AdvReac Type Severity Reaction Status Date / Time No Known Allergies Allergy Verified 04/03/25 10:53 Review of Systems ROS Statement: Those systems with pertinent positive or pertinent negative responses have been documented in the HPI. Review of Systems: CONST: Denies fever EYES: Denies blurry vision ENT: Denies nasal congestion C/V: Denies Chest pain RESP: Denies shortness of breath GI: Denies abdominal pain : Denies dysuria SKIN: Endorses erythema to the left lateral owens. MSK: Denies joint pain. NEURO: Denies headache ROS Other: All systems not noted in ROS Statement are negative. Past Medical History Additional Past Medical History / Comment(s): anemia. DIVERTICULITIS. gastric Bipass History of Any Multi-Drug Resistant Organisms: None Reported Past Surgical History: Appendectomy, Bariatric Surgery, Hernia Repair, Orthopedic Surgery Additional Past Surgical History / Comment(s): left knee SX, tummy tucK, BILAT eye surgery FOR STY'S, COLONOSCOPY, Past Anesthesia/Blood Transfusion Reactions: No Reported Reaction Past Psychological History: No Psychological Hx Reported Smoking Status: Former smoker Past Alcohol Use History: Occasional Past Drug Use History: None Reported - Past Family History Mother Family Medical History: No Reported History General Exam - General Exam Comments Initial Comments: General: Appears in no acute distress. HEAD: Normal with no signs of head trauma. EYES: EOMI ENT: Hearing grossly intact, normal oropharynx. RESPIRATORY: Clear breath sounds bilaterally. No wheezes, rales, or rhonchi. C/V: Regular rate and rhythm. S1 and S2 auscultated, no edema, peripheral pulses 2+ and intact throughout ABD: Abd is soft, nontender, nondistended EXT: Normal range of motion, no obvious deformity. Posterior calf is not tender. SKIN: Findings concerning for possible cellulitis over the left lateral anterior owens. Warmth, erythema, no fluctuance or open wounds present. Patient does have a very small area which is suspected to be a burn over the left anterior forearm with a very small blister present. No concern for infection at this time. NEURO: Alert and oriented x 4. Limitations: no limitations Course Vital Signs 04/03/25 04/03/25 10:50 11:52 Temperature 99.7 F H 99.6 F Pulse Rate 89 Respiratory 18 Rate Blood Pressure 109/69 O2 Sat by Pulse 90 L Oximetry Medical Decision Making - Medical Decision Making Was pt. sent in by a medical professional or institution (ESTRELLA Paulino, APRON WORKER, urgent care, hospital, or detention...) When possible be specific @ -No Did you speak to anyone other than the patient for history (EMS, parent, family, police, friend...)? What history was obtained from this source @ -No Did you review nursing and triage notes (agree or disagree)? Why? @ -I reviewed and agree with nursing and triage notes Were old charts reviewed (outside hosp., previous admission, EMS record, old EKG, old radiological studies, urgent care reports/EKG's, detention records)? Report findings @ -No old charts were reviewed Differential Diagnosis (chest pain, altered mental status, abdominal pain women, abdominal pain men, vaginal bleeding, weakness, fever, dyspnea, syncope, headache, dizziness, GI bleed, back pain, seizure, CVA, palpatations, mental health, musculoskeletal)? @ -DVT, cellulitis, osteomyelitis. This list is not all-inclusive. EKG interpreted by me (3pts min.). @ -None done X-rays interpreted by me (1pt min.). @ -Tib-fib x-ray shows what is suspected to be chronic findings. No acute osteomyelitis. CT interpreted by me (1pt min.). @ -None done U/S interpreted by me (1pt. min.). @ -DVT ultrasound negative for DVT What testing was considered but not performed or refused? (CT, X-rays, U/S, labs)? Why? @ -None What meds were considered but not given or refused? Why? @ -None Did you discuss the management of the patient with other professionals (professionals i.e. ESTRELLA Paulino, APRON WORKER, lab, RT, psych nurse, social worker palliative care, paper rewinder operator, teacher, soil science technical officer, corrections caseworker)? Give summary @ -No Was smoking cessation discussed for >3mins.? @ -No Was critical care preformed (if so, how long)? @ -No Were there social determinants of health that impacted care today? How? (Homelessness, low income, unemployed, alcoholism, drug addiction, transportation, low edu. Level, literacy, decrease access to med. care, group home, rehab)? @ -No Was there de-escalation of care discussed even if they declined (Discuss DNR or withdrawal of care, Hospice)? DNR status @ -No What co-morbidities impacted this encounter? (DM, HTN, Smoking, COPD, CAD, Cancer, CVA, ARF, Chemo, Hep., AIDS, mental health diagnosis, sleep apnea, morbid obesity)? @ -None Was patient admitted / discharged? Hospital course, mention meds given and route, prescriptions, significant lab abnormalities, going to OR and other pertinent info. @ -Patient presents emergency department complaining of suspected cellulitis of the left anterior owens. We will obtain venous duplex ultrasound to rule out DVT as well as general labs. Patient was in agreement this plan. Vital signs remarkable for mild hypoxia on room air. States he is typically anywhere from 88 to 92% on room air. Current findings are not atypical for the patient however he will be placed on his baseline 2 L nasal cannula oxygen which he is on at home. X-ray shows chronic findings without any obvious acute osteomyelitis or infectious process from the current issue. Ultrasound negative for DVT. Labs are within acceptable limits. Patient has thrombocytopenia but this is chronic and he is being worked up for possible MDS. At this time, I reevaluated patient. Vitals remained within acceptable limits. He will be discharged home at this time. He will be placed on Keflex and Bactrim and instructed to follow-up with PCP in the next 1 to 3 days. Strict return precautions discussed. I did offer tetanus booster however patient declines at this time. I will provide the patient with a prescription for Keflex, Bactrim. I instructed the patient to follow up with their PCP in the next 1-3 days.. I explained that the patient should return to the emergency department if they experience any worsening symptoms. Strict return precautions were discussed with the patient. The patient expressed understanding of these instructions. I answered all questions that the patient had. The patient was discharged home in good condition with their prescriptions and follow up information. Undiagnosed new problem with uncertain prognosis? @ -No Drug Therapy requiring intensive monitoring for toxicity (Heparin, Nitro, In sulin, Cardizem)? @ -No Were any procedures done? @ -No Diagnosis/symptom? @ -Left lower extremity cellulitis Acute, or Chronic, or Acute on Chronic? @ -Acute Uncomplicated (without systemic symptoms) or Complicated (systemic symptoms)? @ -Uncomplicated Side effects of treatment? @ -No Exacerbation, Progression, or Severe Exacerbation? @ -No Poses a threat to life or bodily function? How? (Chest pain, [place], [place], pneumonia, PE, COPD, DKA, ARF, appy, cholecystitis, CVA, Diverticulitis, Homicidal, Suicidal, threat to staff... and all critical care pts) @ -Unlikely at this time - Lab Data Result diagrams: 04/03/25 11:22 04/03/25 11:22 Lab Results 04/03/25 04/03/25 Range/Units 11:22 11:22 WBC 7.64 (4.50-10.00) 10*3/uL RBC 3.72 L (4.40-5.60) 10*6/uL Hgb 13.2 (13.0-17.0) g/dL Hct 37.5 L (39.6-50.0) % MCV 100.8 H (80.0-97.0) fL MCH 35.5 H (27.0-32.0) pg MCHC 35.2 (32.0-37.0) g/dL Plt Count 65 L (140-440) 10*3/uL MPV 10.5 (9.5-12.2) fL Immature Gran % (Auto) 1.2 % Neutrophils % 84.7 % Lymphocytes % 6.4 % Monocytes % 6.9 % Eosinophils % 0.4 % Basophils % 0.4 % Immature Gran # 0.09 H (0.00-0.04) 10*3/uL Neutrophils # 6.47 (1.80-7.70) 10*3/uL Lymphocytes # 0.49 L (0.90-5.00) 10*3/uL Monocytes # 0.53 (0.20-1.00) 10*3/uL Eosinophils # 0.03 L (0.04-0.35) 10*3/uL Basophils # 0.03 (0.00-0.10) 10*3/uL Sodium 137 (137-145) mmol/L Potassium 4.0 (3.5-5.1) mmol/L Chloride 107 (98-107) mmol/L Carbon Dioxide 19 L (22-30) mmol/L Anion Gap 11 mmol/L BUN 10 (9-20) mg/dL Creatinine 0.59 L (0.66-1.25) mg/dL Est GFR (CKD-EPI)AfAm >90 (>60 ml/min/1.73 sqM) Est GFR (CKD-EPI)NonAf >90 (>60 ml/min/1.73 sqM) Glucose 93 (74-99) mg/dL Calcium 8.9 (8.4-10.2) mg/dL Magnesium 1.6 (1.6-2.3) mg/dL Total Bilirubin 2.6 H (0.2-1.3) mg/dL AST 45 (17-59) U/L ALT 22 (4-49) U/L Alkaline Phosphatase 140 H (38-126) U/L Total Protein 7.1 (6.3-8.2) g/dL Albumin 3.4 L (3.5-5.0) g/dL Disposition Clinical Impression: Cellulitis of leg, left Disposition: ADMITTED IP TO THIS HOSP Condition: Stable Instructions (If sedation given, give patient instructions): Cellulitis (ED) Prescriptions: Sulfamethox-Tmp 800-160Mg [Bactrim DS 800-160 mg] 1 tab PO Q12HR 10 Days #20 tab Cephalexin [Keflex] 500 mg PO Q12HR 10 Days #20 cap Is patient prescribed a controlled substance at d/c from ED?: No Referrals: Santos Alcazar MD [Primary Care Provider] - 1-2 days Time of Disposition: 13:10
[2025-04-03] MEDS: SULFAMETHOX-TMP 800-160MG 1 EACH TAB PO STA (13:34)
[2025-04-03] MEDS: CEPHALEXIN 500 MG CAP PO STA (13:34)
== END 2025-04-03 13:50 | disposition other institution (70) ==
LOC: EC 10:49
DX: L03.116 Cellulitis of left lower limb (principal); Z87.891 Personal history of nicotine dependence
CPT/HCPCS: 36415; 80053; 83735; 85025; 99285